=== PATIENT | female | born 2000 | race Caucasian/White ===

== ENCOUNTER 2020-11-01 08:34 | Outpatient (CLI) | payer BC, SELFPAY ==
--- NOTE | ~2020-11-01 | US_ITS ---
EXAMINATION: US breast RT limited HISTORY: Pain of the lower inner and subareolar right breast TECHNIQUE: Limited right breast ultrasound is performed. FINDINGS: There is no evidence of focal abnormal cystic or solid mass in the vicinity of the patient' s right breast pain IMPRESSION: No specific sonographic correlate is identified for the patient's right breast pain. Further evaluati on at this time should be based on clinical assessment. Continued follow-up physical examination is r ecommended. BI-RADS Category 1: Negative Reviewed, dictated and finalized at location A. IMPRESSION: No specific sonographic correlate is identified for the patient's right breast pain. Further evaluation at this time should be based on clinical assessment. C ontinued follow-up physical examination is recommended. BI-RADS Category 1: Negative
== END 2020-11-01 08:35 ==
PROVIDERS: Visit Provider Nurse Practitioner
DX: N64.4 Mastodynia (principal)
CPT/HCPCS: 76642